=== PATIENT | female | born 1965 | race Caucasian/White ===

== ENCOUNTER 2016-07-14 21:47 | Observation (INO) | payer BC ==
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
[2016-07-14 19:03] LABS: BASOPHILS 0.3 %; BASOPHILS ABSOLUTE 0.02 10/3/uL (0.0-0.16); EOSINOPHILS 4.3 %; EOSINOPHILS ABSOLUTE 0.29 10/3/uL (0.0-0.53); ER CBC TAT 0 Hrs 11 Mins; HEMOGLOBIN 13.2 g/dL (12.0-16.0); IMMATURE GRANULOCYTES 0.3 %; IMMATURE GRANULOCYTES ABSOLUTE 0.02 10/3/uL (0.0-0.11); LYMPHOCYTES 28.8 %; LYMPHOCYTES ABSOLUTE 1.95 10/3/uL (0.67-4.30); MANUAL DIFF NO %; MEAN CORPUSCULAR HEMOGLOB 30.8 pg (26.0-34.0); MEAN CORPUSCULAR VOLUME 93.5 fL (80-100); MONOCYTES 7.1 %; MONOCYTES ABSOLUTE 0.48 10/3/uL (0.21-1.20); NEUTROPHILS 59.2 %; NEUTROPHILS ABSOLUTE 4.01 10/3/uL (2.02-8.40); PLATELET COUNT 280 10/3/uL (150-400); RBC DISTRIBUTION WIDTH 14.3 % (12.0-16.0); RED CELL COUNT 4.28 10/6/uL (4.0-5.6); WHITE BLOOD CELLS 6.8 10/3/uL (4.5-10.5)
[2016-07-14 19:10] LABS: PARTIAL THROMBO TIME 26.1 SEC (22.5-37.2); PROTIME (NOT ORD) 13.1 SEC (12.0-14.5)
[2016-07-14 19:20] LABS: CALCIUM, SERUM 8.8 MG/DL (8.5-10.4); CHEST PAIN PROFILE TAT 0 Hrs 28 Mins; CHLORIDE, SERUM 109 MMOL/L (96-112); CO2 (CARBON DIOXIDE) 26 MMOL/L (24-34); CREATININE 1.03 MG/DL (0.55-1.02); GFR AFRICAN AMERICAN 73 ML/MIN (>=60); GFR NON AFRICAN AMERICAN 63 ML/MIN (>=60); GLUCOSE, SERUM 96 MG/DL (60-99); POTASSIUM, SERUM 3.9 MMOL/L (3.5-5.3); SODIUM, SERUM 143 MMOL/L (135-148); TROPONIN I <0.02 NG/ML (<0.05)
[2016-07-14 19:24] LABS: BUN (BLOOD UREA NITROGEN) 12 MG/DL (6-23)
[~2016-07-14 21:47] MED LIST: ADVAIR250 INH; ADVIL PO; ALLERGY MED.; AMB10 PO; ARICEPT5 PO; BEN25 PO; CELEXA20 PO; CELEXA40 MG PO; COREG6 PO; COZ25 PO; COZ50 PO; DEXILANT DR PO; DOXY-CAPS100 MG PO; ESGIC1 TAB PO; FLEX PO; IBU800 PO; IMITREX100 MG PO; KADIANSR30 PO; KAPIDEX60 MG PO; KLONO1 PO; KLONO5 PO; L40 PO; LORT7 PO; LORTAB10 PO; LOVENOX40 SC; LYRICA150 MG PO; LYRICA300 MG PO; LYRICA50 PO; LYRICA75 PO; MACROBID PO; MELA3 PO; METHOC750B PO; MIRALAXPKT PO; MOMUD PO; MSCONTIN PO; NAMENDA10 MG PO; NEUR300 PO; NEXIUM40 PO; NORCO1 TA1 PO; PCET PO; PRILOSEC OTC20 MG PO; PROTONIX PO; SEROQUEL300 MG PO; SEROQUEL400 MG PO; SINGULAIR1 PO; SUCR PO; TOPAMAX25 PO; TRAZ100 PO; TRAZ50 PO; TRAZODONE150 MG PO; TRAZODONE300 MG PO; VIB100 PO; VICODIN ES1 TAB PO; VISINE0.05 % OPH; VITAMIN D31000 UNIT PO; VIVELLE-DOT0.1 MG TOP; ZOFRAN4 PO; ZYDONE1 TA2 PO
[2016-07-14 23:05] LABS: CPK 134 U/L (0-200)
[2016-07-15] MEDS ORDERED: ZANAFLEX 4 MG TA4 MG PO (01:23)
[2016-07-15] MEDS ORDERED: TRAZODONE150 MG PO (01:23)
[2016-07-15] MEDS ORDERED: L40 PO (01:24)
[2016-07-15] MEDS ORDERED: SEROQUEL50 MG PO (01:24)
[2016-07-15] MEDS ORDERED: BEN25 PO (01:25)
[2016-07-15 08:25] LABS: AMPHETAMINES (NOT ORD) NEG (NEG); BARBITURATES (NOT ORDERED NEG (NEG); BENZODIAZEPINES (NOT ORD) NEG (NEG); CANNABINOIDS (THC) NEG (NEG); COCAINE (NOT ORDERED) NEG (NEG); OPIATES POS (NEG); PHENCYCLIDINE(PCP) NEG (NEG); TRICYCLICS NEG (NEG)
== END 2016-07-15 13:15 | disposition home or self-care (01) ==
LOC: ER 21:47 → CDU1 23:59
PROVIDERS: Clinical Nurse Specialist; Nurse Practitioner Family
DX: R07.2 Precordial pain (principal); E66.01 Morbid (severe) obesity due to excess calories; F41.9 Anxiety disorder, unspecified; F31.9 Bipolar disorder, unspecified; J45.909 Unspecified asthma, uncomplicated; K21.9 Gastro-esophageal reflux disease without esophagitis; G89.29 Other chronic pain; M54.9 Dorsalgia, unspecified; F17.210 Nicotine dependence, cigarettes, uncomplicated; I10 Essential (primary) hypertension; Z87.442 Personal history of urinary calculi; Z98.890 Other specified postprocedural states; Z86.73 Personal history of transient ischemic attack (TIA), and cerebral infarction without residual deficits; Z90.49 Acquired absence of other specified parts of digestive tract; Z82.49 Family history of ischemic heart disease and other diseases of the circulatory system; Z88.0 Allergy status to penicillin; Z88.2 Allergy status to sulfonamides; Z88.1 Allergy status to other antibiotic agents; Z79.899 Other long term (current) drug therapy
CPT/HCPCS: 71010; 78452; 80048; 80305; 82550; 83735; 83880; 84484; 85025; 85610; 85730; 93005; 93017; 96374; 96376; 99285; A9270-GY; A9502; G0378; J2405; J2930